=== PATIENT | male | born 1965 | race Caucasian/White ===

== ENCOUNTER 2017-08-19 06:45 | Emergency (ER) | payer OTHER ==
[2017-08-19] MEDS ORDERED: DEXAMETHASONE 4 MG/ML VIAL IVP ONE (07:12)
[2017-08-19] MEDS ORDERED: DIAZEPAM 10 MG/2 ML SYR IVP ONE (07:12)
[2017-08-19] MEDS ORDERED: LIDOCAINE 5% 1 EA PATCH TD ONE (07:12)
--- NOTE | 2017-08-19 07:17 | EDPHY ---
H & P Time Seen by Provider: 08/19/17 07:00 HPI/ROS: CHIEF COMPLAINT: Severe low back pain HISTORY OF PRESENT ILLNESS: 52-year-old male presents with severe low back pain. Recently he has began swimming and has noticed increased pain with a twisting motion of the swimming. 2 days ago he had acute worsening of low back pain with bending. The pain is severe and persistent. The pain is aggravated by position change by walking. He has been unable to walk because of severe low back pain and his legs buckling out from under him. He is taking Aleve with minimal relief. No radiation of pain or numbness. History of prior low back pain. MRI of the lumbar spine in 2010 revealed DJD. 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 Smoking Status: Never smoked Physical Exam: General Appearance: Alert, pleasant, appears in pain with any movement Eyes: Pupils equal and round ENT, Mouth: Mucous membranes moist Neck: Normal inspection Respiratory: Lungs are clear to auscultation Cardiovascular: Regular rate and rhythm Gastrointestinal: Abdomen is soft and nontender Neurological: A&O, motor 5/5 including dorsiflexion of the ankle and 1st toe sensory intact to light touch, patellar DTRs 2+ bilaterally Skin: Warm and dry Extremities: Normal inspection Psychiatric: Mood and affect normal Constitutional: Initial Vital Signs Temperature (C) 36.3 C 08/19/17 06:47 Heart Rate 77 08/19/17 06:47 Respiratory Rate 18 08/19/17 06:47 Blood Pressure 127/90 H 08/19/17 06:47 O2 Sat (%) 96 08/19/17 06:47 O2 Delivery Mode Room Air O2 (L/minute) 2 Allergies/Adverse Reactions: No Known Allergies Allergy (Unverified 08/19/17 06:52) Home Medications: Medication Instructions Recorded Diazepam [Valium 5 MG (*)] 5 mg PO Q6 PRN #10 tab 08/19/17 Lipitor 08/19/17 methylPREDNISolone [Medrol Dose 1 each PO AD #1 ea 08/19/17 Bernardo] oxyCODONE/APAP 325 [Percocet 1 tab PO Q4 PRN #15 tab 08/19/17 5325 (*)] Medical Decision Making - Diagnostics Imaging Results: Imaging Impressions Lumbar Spine MRI 08/19/17 07:13 Impression: Multilevel degenerative change between L1 and S1. No evidence for severe central or foraminal stenosis. Results called and discussed with WAGNRE KELSEY, at 08/19/2017 10:48 ED Course/Re-evaluation: This patient presents with severe low back pain and inability to ambulate. Decadron 4 mg IV, Valium 5 mg IV and morphine 4 mg IV given. A lidocaine patch was placed. MRI of the lumbar spine ordered. 10:50 a.m.-MRI results with the patient. Admission versus discharge home discussed. He would prefer to go home. Percocet 1 tablet orally given. He will attempt to ambulate after the Percocet. Able to walk with a steady gait. Will discharge home. He will follow up with Dr. José Miguel Hoffman in the office, if the symptoms do not improve. Differential Diagnosis: Differential diagnosis for back pain includes muscular pain, herniated disc, epidural abscess, discitis, spine fracture, intra-abdominal causes and urinary tract infection. - Data Points Laboratory Results: Laboratory Results 08/19/17 07:00 08/19/17 07:00 08/19/17 08/19/17 07:00 07:00 WBC 7.25 10^3/uL 10^3/uL (3.80-9.50) RBC 5.08 10^6/uL 10^6/uL (4.40-6.38) Hgb 16.4 g/dL g/dL (13.7-17.5) Hct 46.6 % % (40.0-51.0) MCV 91.7 fL fL (81.5-99.8) MCH 32.3 pg pg (27.9-34.1) MCHC 35.2 g/dL g/dL (32.4-36.7) RDW 12.9 % % (11.5-15.2) Plt Count 312 10^3/uL 10^3/uL (150-400) MPV 9.2 fL fL (8.7-11.7) Neut % (Auto) 63.4 % % (39.3-74.2) Lymph % (Auto) 26.1 % % (15.0-45.0) Sharkey % (Auto) 8.4 % % (4.5-13.0) Eos % (Auto) 1.2 % % (0.6-7.6) Baso % (Auto) 0.6 % % (0.3-1.7) Nucleat RBC Rel Count 0.0 % % (0.0-0.2) Absolute Neuts (auto) 4.60 10^3/uL 10^3/uL (1.70-6.50) Absolute Lymphs (auto) 1.89 10^3/uL 10^3/uL (1.00-3.00) Absolute Monos (auto) 0.61 10^3/uL 10^3/uL (0.30-0.80) Absolute Eos (auto) 0.09 10^3/uL 10^3/uL (0.03-0.40) Absolute Basos (auto) 0.04 10^3/uL 10^3/uL (0.02-0.10) Absolute Nucleated RBC 0.00 10^3/uL 10^3/uL (0-0.01) Immature Gran % 0.3 % % (0.0-1.1) Immature Gran # 0.02 10^3/uL 10^3/uL (0.00-0.10) Sodium 146 mEq/L H mEq/L (135-145) Potassium 4.2 mEq/L mEq/L (3.5-5.2) Chloride 105 mEq/L mEq/L (97-110) Carbon Dioxide 25 mEq/l mEq/l (22-31) Anion Gap 16 mEq/L mEq/L (8-16) BUN 21 mg/dL mg/dL (7-23) Creatinine 1.0 mg/dL mg/dL (0.7-1.3) Estimated GFR > 60 Glucose 102 mg/dL H mg/dL (70-100) Calcium 10.2 mg/dL mg/dL (8.5-10.4) Medications Given: Discontinued Medications Dexamethasone (Decadron Injection) 4 mg IVP EDNOW ONE Stop: 08/19/17 07:13 Last Admin: 08/19/17 07:34 Dose: 4 mg Diazepam (Valium) 5 mg IVP EDNOW ONE Stop: 08/19/17 07:13 Last Admin: 08/19/17 07:35 Dose: 5 mg Ketorolac Tromethamine (Toradol) 15 mg IVP EDNOW ONE Stop: 08/19/17 08:39 Last Admin: 08/19/17 08:44 Dose: 15 mg Lidocaine (Lidoderm 5%) 1 ea TD EDNOW ONE Stop: 08/19/17 07:13 Last Admin: 08/19/17 07:36 Dose: 1 ea Miscellaneous Information (Patch Removal) 1 ea TD [id number] BRYANT Stop: 02/15/18 20:59 Last Admin: 08/19/17 08:59 Dose: Not Given Morphine Sulfate (Morphine) 4 mg IVP Q1H PRN PRN Reason: Pain, Severe Unable to Take PO Last Admin: 08/19/17 07:34 Dose: 4 mg Oxycodone/Acetaminophen (Percocet 5/325) 1 tab PO EDNOW ONE Stop: 08/19/17 10:57 Last Admin: 08/19/17 11:17 Dose: 1 tab Departure - Departure Disposition: Home, Routine, Self-Care Clinical Impression: Low back pain Qualifiers: Chronicity: acute Back pain laterality: right Sciatica presence: without sciatica Qualified Code(s): M54.5 - Low back pain Condition: Good Instructions: Low Back Strain (ED) Referrals: Maxx Esparza MD [Primary Care Provider] - As per Instructions Oswaldo Hoffman MD [Medical Doctor] - 5-7 days, call for appt. Prescriptions: Diazepam [Valium 5 MG (*)] 5 mg PO Q6 PRN #10 tab PRN Reason: muscle spasm methylPREDNISolone [Medrol Dose Bernardo] 1 each PO AD #1 ea oxyCODONE/APAP 5/325 [Percocet 5/325 (*)] 1 tab PO Q4 PRN #15 tab PRN Reason: pain
[2017-08-19] MEDS ORDERED: KETOROLAC 15 MG/1 ML SDV ONE (08:36)
[2017-08-19] MEDS ORDERED: KETOROLAC 15 MG/1 ML SDV IVP ONE (08:38)
[2017-08-19 09:22] LABS: PLATELET COUNT 312 10^3/uL (150-400)
[2017-08-19] MEDS ORDERED: OXYCODONE/APAP 5/325 TAB PO ONE (10:56)
[2017-08-19 12:47] VITALS: BP 127/82; PULSE 62; RESP 17; TEMP 97.4; O2SAT 92
[2017-08-19] MEDS ORDERED: PATCH REMOVAL 1 EA PATCH TD SCH (21:00)
== END 2017-08-19 12:35 | disposition home or self-care (01) ==
DX: M54.5 Low back pain (principal)
CPT/HCPCS: 96374; J1100; J1885

== ENCOUNTER → 2018-09-05 | Outpatient (CLI) | payer OTHER | LOC: FIMAGING 09:45 | PROVIDERS: ATTEND Specialist | DX: N20.0 Calculus of kidney (principal) ==

== ENCOUNTER → 2018-09-05 | Outpatient (CLI) | payer OTHER | LOC: FIMAGING 09:47 | PROVIDERS: ATTEND Specialist | DX: N20.0 Calculus of kidney (principal) ==